=== PATIENT | female | born 1960 | race Caucasian/White ===

== ENCOUNTER 2017-12-13 16:13 | Inpatient (IN) | payer MEDICARE ==
[~2017-12-13] VITALS: Ht 162.6 cm; Wt 64.4 kg
[2017-12-13 16:00] VITALS: BP 133/85
[2017-12-13] MEDS ORDERED: AMLO5TAB2 PO (17:12)
[2017-12-13] MEDS ORDERED: SERT100T PO (17:12)
[2017-12-13] MEDS ORDERED: OMEP40CA37 PO (17:12)
[2017-12-13] MEDS ORDERED: HYDR-548 PO (17:12)
[2017-12-13] MEDS ORDERED: TRAZ-147 PO (17:12)
[2017-12-13] MEDS ORDERED: ALPR1TAB7 PO (17:12)
[2017-12-13 17:27] VITALS: BP 132/85
[2017-12-13] MEDS ORDERED: MAGNESIUM HYDROXIDE 30 ML UDC PO PRN (17:30)
[2017-12-13] MEDS ORDERED: MAG HYDROX/AL HYDROX/SIMETH 30 ML UDC PO PRN (17:30)
[2017-12-13] MEDS ORDERED: LORAZEPAM 0.5 MG TABLET PO PRN (17:30)
--- NOTE | 2017-12-13 19:31 | NUR ---
GPS/RN RECEIVED PT ON 515 . ADMITTING ORDERS FROM DR SANDOVAL RECEIVED AND CARRIED OUT. DR AMBROSE MADE AWARE OF ADMISSION. WILL ENDORSE TO MANAGER DRIVE TO FOLLOW UP WITH ADMISSION.
--- NOTE | 2017-12-13 20:00 | NUR ---
GPS ADMISSION NOTES: ADMITTED A 57 YO FEMALE FROM [facility] ON 5150 HOLD FOR DANGER TO SELF. PER HOLD THE PATIENT IS HAVING THOUGHTS OF ENDING HER LIFE, SHE TOOK A COMBINATION OF PAIN MEDICATIONS AND XANAX TABLETS,CLIENT ADDED THAT SHE CANNOT MAINTAIN HER OWN SAFETY, SHE HAS MANY STRESSORS IN HER LIFE, INCLUDING HER SON'S MURDER. PATIENT HAS BEEN IN THE UNIT AND WAS INITIALLY ADMITTED BY DAY SHIFT NURSE. BELONGINGS AND CONTRABAND CHECKED. PATIENT CHANGED TO HOSPITAL GOWN. UPON FACE TO FACE EVALUATION PATIENT PRESENTS ALERT AND ORIENTED X3, ABLE TO STATE HER NEEDS. PATIENT IS OBSERVED TO BE DEPRESSED, SAD, QUIET, HOWEVER SHE IS DENYING SUICIDAL THOUGHTS THIS TIME. REALITY ORIENTATION DONE. ORIENTATION TO UNIT, STAFF, POLICIES AND DOCTORS DONE.ADMISSION PAPERS SIGNED. MRSA SWAB DONE. PATIENT WILL BE UNDER THE CARE OF DR. SANDOVAL AND [facility] DOCTORS. MEDICATION RECONCILIATION FOR MEDICAL MEDS ARE DONE. PATIENT DENIES ANY SKIN ISSUES THIS TIME. Q15 MIN CHECKS INITIATED. CARE PLAN INITIATED. SAFETY ENVIRONMENTAL CHECK DONE. WILL ENDORSE PATIENT TO DAY SHIFT NURSE.
[2017-12-13 20:23] VITALS: BP 125/76
[2017-12-13] MEDS: AMLODIPINE BESYLATE 5 MG TABLET PO SCH (21:14)
[2017-12-13] MEDS: HYDROCODONE/APAP 10/325MG 1 EA TABLET PO PRN (22:43)
[2017-12-14] MEDS: TEMAZEPAM 7.5 MG CAPSULE PO PRN (00:58)
[2017-12-14 07:56] LABS: BASOPHILS % (AUTO) 0.6 % (0.0-2.0); EOSINOPHILS % (AUTO) 0.2 % (0.0-6.0); HEMATOCRIT 32 % (33-45); HEMOGLOBIN 10.3 g/dL (11.5-14.8); LYMPHOCYTES # (AUTO) 1.1 /CMM (0.8-4.8); MEAN CORPUSCULAR HEMOGLOBIN 25 PG (26.0-33.0); MEAN CORPUSCULAR HGB CONC 33 g/dl (31.0-36.0); MEAN CORPUSCULAR VOLUME 78 fL (82-100); MONOCYTES # (AUTO) 0.4 /CMM (0.1-1.30); MONOCYTES % (AUTO) 9.9 % (2.0-12.0); NEUTROPHILS # (AUTO) 2.9 /CMM (1.8-8.9); NEUTROPHILS % (AUTO) 65.3 % (43.0-81.0); PLATELET COUNT (AUTO) 162 /CMM (150-450); RDW COEFFICIENT OF VARIATION 21.3 (11.5-15.0); RED BLOOD CELL COUNT(AUTO) 4.06 MIL/uL (4.0-5.2); WHITE BLOOD COUNT (AUTO) 4.4 K/uL (4.3-11.0)
[2017-12-14 08:06] LABS: ALBUMIN 3.1 g/dL (3.4-5.0); BILIRUBIN,TOTAL 0.5 mg/dL (0.2-1.0); CALCIUM, SERUM 8.2 mg/dL (8.5-10.1); CREATININE 0.6 mg/dL (0.6-1.3); POTASSIUM 3.3 mmol/L (3.5-5.1)
[2017-12-14 08:21] VITALS: BP 146/92
[2017-12-14] MEDS: AMLODIPINE BESYLATE 5 MG TABLET PO SCH (09:12)
[2017-12-14] MEDS: PANTOPRAZOLE 40 MG TABLET.DR PO SCH (09:12)
[2017-12-14] MEDS ORDERED: LORAZEPAM 0.5 MG TABLET PO PRN (11:30)
[2017-12-14] MEDS ORDERED: POTASSIUM CHLORIDE 20 MEQ TAB.PRT.SR PO SCH (12:00)
[2017-12-14] MEDS: ACETAMINOPHEN 325 MG TABLET PO PRN ×2 (12:09→20:40)
[2017-12-14 16:00] VITALS: BP 131/71
--- NOTE | 2017-12-14 19:30 | NUR ---
RN NOTES RECEIVED PATIENT IN BED AWAKE, AO X 3, ABLE TO MAKE NEEDS KNOWN. NO ACUTE DISTRESS NOTED. DENIES ANY PAIN AT THIS TIME. DENIES ANY SUICIDAL IDEATIONS AT THIS TIME. SAFETY REMINDERS GIVEN. ON LOW BED WITH BILATERAL UPPER SIDE RAILS UP. CALL ESCOBAR WITHIN EASY REACH. WILL CONTINUE TO MONITOR.
[2017-12-14 19:36] VITALS: BP 129/73
[2017-12-14 20:00] VITALS: BP 129/73
[2017-12-14] MEDS: TRAZODONE 50 MG TABLET PO SCH (21:36)
[2017-12-15] MEDS: HYDROCODONE/APAP 10/325MG 1 EA TABLET PO PRN ×2 (02:29→23:30)
--- NOTE | 2017-12-15 06:30 | NUR ---
RN NOTES PATIENT ASLEEP, EASILY AROUSABLE. RESPIRATIONS EVEN. NO SIGNS OF PAIN NOTED. DUE MED GIVEN WITH NO ASE NOTED. NEEDS ATTENDED. KEPT CLEAN AND DRY. SAFETY PRECAUTIONS AND COMFORT MEASURES IN PLACE. WILL GIVE REPORT TO DAY SHIFT FOR CONTINUITY OF CARE.
[2017-12-15 08:00] VITALS: BP 115/68
--- NOTE | 2017-12-15 08:44 | NUR ---
Initial Discharge Plan: Patient's residence is located at [address] [place] [id number] / [phone]. Patient lives there with many family members, which include her son, son's significant other and grandchildren. Patient states that she has a good support system and wishes to return home upon discharge. SW to contact family to discuss discharge plan. SW to follow up with MD and to facilitate a safe and proper discharge.
[2017-12-15] MEDS ORDERED: DULOXETINE HCL 30 MG CAPSULE.DR PO SCH (09:00)
[2017-12-15] MEDS: AMLODIPINE BESYLATE 5 MG TABLET PO SCH (09:19)
[2017-12-15] MEDS: PANTOPRAZOLE 40 MG TABLET.DR PO SCH (09:20)
[2017-12-15] MEDS: ACETAMINOPHEN 325 MG TABLET PO PRN (14:08)
[2017-12-15 16:00] VITALS: BP 137/80
[2017-12-15 20:49] VITALS: BP 119/75
[2017-12-15] MEDS: TRAZODONE 50 MG TABLET PO SCH (21:24)
--- NOTE | 2017-12-15 23:30 | NUR ---
GPS RN NOTES: PATIENT C/O GENERALIZED BODY PAIN, PATIENT RATES PAIN 7/10. V/S STABLE. ADMINISTER NORCO 10/325MG PO PRN ORDER, WILL CONTINUE TO MONITOR AND ASSESS FOR PAIN.
[2017-12-16] MEDS: ACETAMINOPHEN 325 MG TABLET PO PRN ×2 (02:57→16:00)
[2017-12-16 08:00] VITALS: BP 130/78
[2017-12-16] MEDS: PANTOPRAZOLE 40 MG TABLET.DR PO SCH (08:05)
[2017-12-16] MEDS: AMLODIPINE BESYLATE 5 MG TABLET PO SCH (08:06)
[2017-12-16] MEDS ORDERED: DULOXETINE HCL 30 MG CAPSULE.DR PO SCH (09:00)
[2017-12-16] MEDS: HYDROCODONE/APAP 10/325MG 1 EA TABLET PO PRN ×2 (13:17→20:18)
--- NOTE | 2017-12-16 13:22 | NUR ---
GPS RN NOTES: PATIENT C/O KNEE PAIN, PATIENT RATES PAIN 9/10. V/S STABLE. ADMINISTER NORCO 10/325MG PO PRN ORDER, WILL CONTINUE TO MONITOR AND ASSESS FOR PAIN.
--- NOTE | 2017-12-16 13:26 | NUR ---
Discharge Planning: SW called and left a voicemail for patient's mother, [facility] [phone]. In the voicemail, SW provide her direct contact information and asked for a call back.
[2017-12-16 17:10] VITALS: BP 140/84
--- NOTE | 2017-12-16 20:18 | NUR ---
GPS RN NOTES: PATIENT C/O PAIN ON BILATERAL LOWER EXTREMITIES. PATIENT IS REQUESTING FOR NORCO. V/S ARE STABLE. ADMINISTERED NORCO 10/325MG PO GIVEN ORDERED. WILL CONTINUE TO ASSESS AND MONITOR FOR PAIN.
[2017-12-16 21:06] VITALS: BP 134/82
[2017-12-16] MEDS: TRAZODONE 50 MG TABLET PO SCH (21:33)
[2017-12-17] MEDS: HYDROCODONE/APAP 10/325MG 1 EA TABLET PO PRN ×3 (03:24→16:24)
[2017-12-17 08:00] VITALS: BP 135/78
[2017-12-17] MEDS: PANTOPRAZOLE 40 MG TABLET.DR PO SCH (08:30)
[2017-12-17] MEDS: AMLODIPINE BESYLATE 5 MG TABLET PO SCH (08:31)
[2017-12-17] MEDS: DULOXETINE HCL 30 MG CAPSULE.DR PO SCH (08:49)
--- NOTE | 2017-12-17 09:27 | NUR ---
Discharge Planning: CARSON spoke with patient's mother, Dale [phone]. Dale stated that she will be the one to pick patient up upon discharge and that the patient might stay with her for some time before returning back home. Dale thanked CARSON for updating her.
[2017-12-17 16:08] VITALS: BP 136/72
--- NOTE | 2017-12-17 16:46 | NUR ---
GPS/RN PATIENT REPORTS 06/28 BILATERAL KNEE PAIN, ADMINISTERED NORCO 1 TAB, WILL CONTINUE TO MONITOR
[2017-12-17 20:00] VITALS: BP 114/77
[2017-12-17] MEDS: TRAZODONE 50 MG TABLET PO SCH (22:16)
[2017-12-18 08:00] VITALS: BP 123/77
[2017-12-18] MEDS: AMLODIPINE BESYLATE 5 MG TABLET PO SCH (08:17)
[2017-12-18] MEDS: DULOXETINE HCL 30 MG CAPSULE.DR PO SCH (08:18)
[2017-12-18] MEDS: PANTOPRAZOLE 40 MG TABLET.DR PO SCH (08:18)
[2017-12-18] MEDS: HYDROCODONE/APAP 10/325MG 1 EA TABLET PO PRN ×2 (08:52→16:55)
--- NOTE | 2017-12-18 12:17 | NUR ---
Discharge Note: Patient will be discharged back home on Thursday12/19/[address] [place] [address] [place] [id number] / [phone]. Patient resides there with multiple family members. Patient will be picked up by her mother, Dale [phone] in her private vehicle. Patient and patients family are in agreement with the discharge plan. SW spoke with patient the day before discharge. Patient denied suicidal and homicidal ideation. Patient denied any hallucinations. Patient was glad to be discharging. Patient will follow up with her reconciliation clerk, Dr. Toledo [address] [facility] [address] [phone] on December 28 at 2:40pm. Patient did not want SW to make appointments to see a psychiatrist. CARSON provided patient with information for mental health resources in the [facility], such as [facility] [address] [place] [address] Nilsa Beltrán, Given patient's recent loss of son, CARSON also provided patient with grief and loss resources. CARSON provided patient with additional resources which included the suicide hotline SEE FULL RESOURCES IN CHART. Patient was referred to [facility] outpatient drug and alcohol program at [address] [place] [address] and was encouraged to present there on December 21. Additional resources included the prevention program in [facility] [address] [facility], [address], [place] [address] / and a Narcotics Anonymous group at [address], [address] on Tuesdays at 7pm [open group]
[2017-12-18 16:00] VITALS: BP 109/70
[2017-12-18 20:00] VITALS: BP 128/75
[2017-12-18] MEDS ORDERED: LIDOCAINE 5% (PATCH) 1 EA PATCH TP SCH (20:00)
[2017-12-18] MEDS: TRAZODONE 50 MG TABLET PO SCH (21:28)
[2017-12-18] MEDS: TEMAZEPAM 7.5 MG CAPSULE PO PRN (21:29)
[2017-12-19] MEDS: HYDROCODONE/APAP 10/325MG 1 EA TABLET PO PRN (03:26)
[2017-12-19 07:27] LABS: BASOPHILS % (AUTO) 0.6 % (0.0-2.0); EOSINOPHILS % (AUTO) 0.4 % (0.0-6.0); HEMATOCRIT 32 % (33-45); HEMOGLOBIN 10.5 g/dL (11.5-14.8); LYMPHOCYTES # (AUTO) 1.1 /CMM (0.8-4.8); MEAN CORPUSCULAR HEMOGLOBIN 26 PG (26.0-33.0); MEAN CORPUSCULAR HGB CONC 33 g/dl (31.0-36.0); MEAN CORPUSCULAR VOLUME 79 fL (82-100); MONOCYTES # (AUTO) 0.4 /CMM (0.1-1.30); MONOCYTES % (AUTO) 11.1 % (2.0-12.0); NEUTROPHILS # (AUTO) 1.9 /CMM (1.8-8.9); NEUTROPHILS % (AUTO) 54.9 % (43.0-81.0); PLATELET COUNT (AUTO) 169 /CMM (150-450); RDW COEFFICIENT OF VARIATION 20.7 (11.5-15.0); RED BLOOD CELL COUNT(AUTO) 4.08 MIL/uL (4.0-5.2); WHITE BLOOD COUNT (AUTO) 3.4 K/uL (4.3-11.0)
[2017-12-19 07:32] LABS: CALCIUM, SERUM 8.6 mg/dL (8.5-10.1); CREATININE 0.6 mg/dL (0.6-1.3); POTASSIUM 4.5 mmol/L (3.5-5.1)
[2017-12-19] MEDS: PANTOPRAZOLE 40 MG TABLET.DR PO SCH (07:35)
[2017-12-19 08:00] VITALS: BP 113/73
[2017-12-19 09:27] VITALS: BP 113/73
[2017-12-19] MEDS: DULOXETINE HCL 30 MG CAPSULE.DR PO SCH (09:27)
[2017-12-19] MEDS: AMLODIPINE BESYLATE 5 MG TABLET PO SCH (09:27)
--- NOTE | 2017-12-19 09:42 | NUR ---
DR. SANDOVAL GAVE AN ORDER TO D/C HOLD AND D/C HOME TODAY AND TO FOLLOW UP WITH PSYCH AND MEDICAL DOCTORS. SPOKE TO MANPREET THE MOTHER AT [phone] AND SAID SHE WILL COME TO PICK HER UP.
--- NOTE | 2017-12-19 09:45 | NUR ---
RC HILTON MADE AWARE OF THE DISCHARGE AND SAID OK FOR DISCHARGE AND MADE PRESCRIPTIONS.
--- NOTE | 2017-12-19 11:52 | NUR ---
DISCHARGE NOTE: PATIENT LEFT THE UNIT AT 1145 WITH MOTHER AND SISTER. PATIENT IS MEDICALLY STABLE AND DENIES SI/HI DURING TIME OF DISCHARGE. THE PATIENT DENIES HALLUCINATIONS. DR SANDOVAL GAVE DISCHARGE ORDER, DISCONTINUED HOLD, AND RECONCILED MEDS. DR HILTON MADE AWARE OF DISCHARGE AND RECONCILED MEDS. THE PATIENT SIGNED NECESSARY PAPERS AND EXIT CARE PAPERS GIVEN AND EXPLAINED TO PATIENT. PATIENT BELONGINGS WERE GIVEN TO PATIENT DURING DISCHARGE. PATIENT ESCORTED DOWN TO LOBBY WITH THREADER DURING DISCHARGE.
== END 2017-12-19 11:45 | disposition home or self-care (01) | DRG 885 ==
LOC: GPS 16:13
PROVIDERS: ADMIT Psychiatry & Neurology Psychosomatic Medicine; ATTEND Internal Medicine
DX: F33.3 Major depressive disorder, recurrent, severe with psychotic symptoms (principal); F23 Brief psychotic disorder; R45.851 Suicidal ideations; D86.9 Sarcoidosis, unspecified; F41.9 Anxiety disorder, unspecified; I10 Essential (primary) hypertension; G89.29 Other chronic pain; M19.90 Unspecified osteoarthritis, unspecified site; Z87.891 Personal history of nicotine dependence
CPT/HCPCS: 36415; 80048-TC; 80053-TC; 80061-TC; 85025-TC; 87081-TC; Z7610